=== PATIENT | female | born 1975 | race Caucasian/White ===

== ENCOUNTER → 2021-06-18 | Outpatient (CLI) | payer OTHER | LOC: M WHC 07:15 | PROVIDERS: ATTEND Family Medicine | DX: Z12.31 Encounter for screening mammogram for malignant neoplasm of breast (principal) ==

== ENCOUNTER → 2022-06-21 | Outpatient (CLI) | payer OTHER | LOC: M WHC 07:55 | PROVIDERS: ATTEND Family Medicine | DX: Z12.31 Encounter for screening mammogram for malignant neoplasm of breast (principal) ==